=== PATIENT | male | born 1940 ===

== ENCOUNTER → 2021-09-13 11:33 | Outpatient (BNVA) | payer MEDICARE, SELFPAY | PROVIDERS: PCP Internal Medicine; Visit Provider Psychiatry & Neurology Neurology | DX: R26.9 Unspecified abnormalities of gait and mobility (principal); M21.379 Foot drop, unspecified foot | CPT/HCPCS: 99212 ==

== ENCOUNTER → 2021-11-23 14:05 | Outpatient (BNVA) | payer MEDICARE, SELFPAY | PROVIDERS: PCP Internal Medicine; Visit Provider Nurse Practitioner Family | DX: R26.9 Unspecified abnormalities of gait and mobility (principal); M21.379 Foot drop, unspecified foot | CPT/HCPCS: 99212 ==

== ENCOUNTER → 2022-03-20 14:33 | Outpatient (BNVA) | payer MEDICARE, SELFPAY | PROVIDERS: PCP Internal Medicine; Visit Provider Nurse Practitioner Family | DX: R26.9 Unspecified abnormalities of gait and mobility (principal); M21.379 Foot drop, unspecified foot; Z79.899 Other long term (current) drug therapy | CPT/HCPCS: 99212 ==